=== PATIENT | male | born 1960 | race Two or more races ===

== ENCOUNTER 2017-08-23 04:41 | Emergency (ER) | payer MEDICAID ==
[~2017-08-23] VITALS: Ht 182.9 cm; Wt 86.2 kg
--- NOTE | 2017-08-23 04:41 | NUR ---
BB SELF; UNABLE TO URINATE SINCE YESTERDAY STATING "IT FEELS VERY UNCOMFORTABLE". VSS A/OX4 NAD WILL CONTINUE TO MONITOR FOR ANY CHANGES DURING THE SHIFT.
[2017-08-23 05:48] LABS: APPEARANCE,URINE CLEAR (CLEAR); BILIRUBIN,URINE NEGATIVE (NEGATIVE); BLOOD, URINE TRACE-INTA Ery/uL (NEGATIVE); COLOR,URINE YELLOW (YELLOW); KETONES,URINE NEGATIVE (NEGATIVE); LEUKOCYTE ESTERASE ,URINE NEGATIVE (NEGATIVE); NITRITE, URINE NEGATIVE (NEGATIVE); PH,URINE 6.5 (5.0-8.0); PROTEIN,URINE NEGATIVE (NEGATIVE); UGLUCOSE NEGATIVE (NEGATIVE); UROBILINOGEN,URINE 0.2 EU/dL (0.2)
[2017-08-23 06:02] LABS: BACTERIA,URINE Few /HPF (None Seen); SQUAMOUS EPITHELIAL CELL,UR Rare /HPF (None Seen); WBC,URINE 0-2 /HPF (0-3)
[2017-08-23] MEDS ORDERED: IBUPROFEN 200 MG TABLET ONE (06:22)
[2017-08-23] MEDS ORDERED: IBUPROFEN 600 MG TABLET PO ONE (06:23)
[2017-08-23] MEDS ORDERED: IBUPROFEN 400 MG TABLET PO ONE (06:30)
[2017-08-23 06:46] VITALS: BP 145/78
--- NOTE | 2017-08-23 06:47 | NUR ---
Patient discharged to home in stable condition. Written and verbal after care instructions given. Patient verbalizes understanding of instruction. PT ambulatory with a steady gait VITAL SIGNS WITHIN NORMAL LIMITS.
== END 2017-08-23 06:52 | disposition home or self-care (01) ==
LOC: ER 04:47
DX: R33.9 Retention of urine, unspecified (principal); I10 Essential (primary) hypertension
CPT/HCPCS: 51702; 81001; 99284; A4606; Z7610; 81000-TC

== ENCOUNTER 2017-08-28 14:14 | Emergency (ER) | payer MEDICAID ==
[~2017-08-28] VITALS: Ht 185.4 cm; Wt 86.2 kg
--- NOTE | 2017-08-28 14:45 | NUR ---
CATHETER LEAKING AROUND SITE. PAIN X 2 DAYS, NAD NOTED, VSS, RESP EVEN AND UNLABORED. PT WAS PUT ON MONITOR, WAITING FOR MD JAMA.
[2017-08-28] MEDS ORDERED: LIDOCAINE 2% JEL UROJET 10 ML MM ONE ×2 (15:26→17:28)
[2017-08-28] MEDS ORDERED: HYDROCODONE/APAP 10/325MG 1 EA TABLET PO ONE (16:00)
[2017-08-28] MEDS ORDERED: HYDROCODONE/APAP 10/325MG 1 EA TABLET ONE (16:03)
[2017-08-28 16:21] LABS: APPEARANCE,URINE Slightly Cloudy (CLEAR); BILIRUBIN,URINE Negative (NEGATIVE); BLOOD, URINE Large Ery/uL (NEGATIVE); COLOR,URINE Yellow (YELLOW); KETONES,URINE Negative (NEGATIVE); LEUKOCYTE ESTERASE ,URINE Trace (NEGATIVE); NITRITE, URINE Negative (NEGATIVE); PROTEIN,URINE >=300 mg/dl (NEGATIVE); UGLUCOSE Negative (NEGATIVE); UROBILINOGEN,URINE 0.2 EU/dL (0.2)
[2017-08-28 16:38] LABS: RBC,URINE 81-100 /HPF (0-2)
[2017-08-28 16:39] LABS: BACTERIA,URINE Few /HPF (None Seen); SQUAMOUS EPITHELIAL CELL,UR Rare /HPF (None Seen)
[2017-08-28 17:59] VITALS: BP 134/82
--- NOTE | 2017-08-28 18:01 | NUR ---
Patient discharged to home in stable condition. Written and verbal after care instructions given. Patient verbalizes understanding of instruction. Prescription given.
== END 2017-08-28 18:02 | disposition home or self-care (01) ==
LOC: ER 14:15
DX: T83.031A Leakage of indwelling urethral catheter, initial encounter (principal); N39.0 Urinary tract infection, site not specified; N48.89 Other specified disorders of penis; F17.200 Nicotine dependence, unspecified, uncomplicated; I10 Essential (primary) hypertension; Z98.890 Other specified postprocedural states; Y92.89 Other specified places as the place of occurrence of the external cause
CPT/HCPCS: 81000-TC; A4606; J3490; Z7610

== ENCOUNTER 2017-09-03 06:28 | Emergency (ER) | payer MEDICAID ==
[~2017-09-03] VITALS: Ht 182.9 cm; Wt 86.2 kg
[2017-09-03] MEDS ORDERED: LIDOCAINE 2% JEL UROJET 10 ML MM ONE ×2 (06:36→07:00)
[2017-09-03 07:25] LABS: APPEARANCE,URINE CLEAR (CLEAR); BILIRUBIN,URINE NEGATIVE (NEGATIVE); BLOOD, URINE NEGATIVE Ery/uL (NEGATIVE); COLOR,URINE YELLOW (YELLOW); KETONES,URINE NEGATIVE (NEGATIVE); LEUKOCYTE ESTERASE ,URINE NEGATIVE (NEGATIVE); NITRITE, URINE NEGATIVE (NEGATIVE); PROTEIN,URINE NEGATIVE (NEGATIVE); UGLUCOSE NEGATIVE (NEGATIVE); UROBILINOGEN,URINE 0.2 EU/dL (0.2)
[2017-09-03 08:33] VITALS: BP 140/83
--- NOTE | 2017-09-03 08:34 | NUR ---
pt entered emergency room with c/c of urinary retention since 0430 this AM . Pt seen in this emergency room for newman placement subsequently removed . Then pt redevelpoed urinary retention with pressure and pain. pt alert with orientation x 4. pt has a history of prostate problem. 16 yakut placed evaluated pt and total urine out put 1300 ml. Urine bag bag placed MD Carvajal aware. pt able to amubulate with leg bag. pt pain 0/10.
--- NOTE | 2017-09-03 10:21 | NUR ---
pt departed for home given f/u woth urology walked out of ER with steady gait to home.
== END 2017-09-03 10:22 | disposition home or self-care (01) ==
LOC: ER 06:31
DX: R33.9 Retention of urine, unspecified (principal); I10 Essential (primary) hypertension; F17.200 Nicotine dependence, unspecified, uncomplicated
CPT/HCPCS: 81000-TC; A4606; J3490; Z7610

== ENCOUNTER 2017-09-15 20:44 | Emergency (ER) | payer MEDICAID ==
[~2017-09-15] VITALS: Ht 182.9 cm; Wt 86.2 kg
[2017-09-15] MEDS ORDERED: ONDANSETRON 4 MG TAB.RAPDIS SL ONE (21:00)
--- NOTE | 2017-09-15 21:02 | NUR ---
BIBSELF FOR UNABLE TO URINATE SINCE 10AM YESTERDAY. PT AOX3 RR EVEN AND UNLABORED. NO SOB NOTED. NAD NOTED. NO NVD AT THIS TIME. PT GOWNED AND PLACED ON MONITOR WAITING FOR MD JAMA.
--- NOTE | 2017-09-15 21:03 | NUR ---
VERBAL ORDER PER MD TO PLACED F/C. 16FR F/C PLACED. URINE COLLECTED. CALLED LAB FOR PICK.
[2017-09-15] MEDS ORDERED: ONDANSETRON 4 MG TAB.RAPDIS ONE (21:05)
--- NOTE | 2017-09-15 21:07 | NUR ---
DR. HOLLIDAY AT BEDSIDE FOR EVAL.
[2017-09-15] MEDS ORDERED: PHENAZOPYRIDINE HCL 200 MG TABLET ONE (21:30)
[2017-09-15] MEDS ORDERED: PHENAZOPYRIDINE HCL 200 MG TABLET PO ONE (21:30)
--- NOTE | 2017-09-15 21:56 | NUR ---
Patient is resting comfortably in bed with eyes closed. Easily aroused. VSS. HURTADO OUTPUT [address] HOLLIDAY MADE AWARE
--- NOTE | 2017-09-15 22:19 | NUR ---
PT PROVIDED WITH LEG BAG PER MD ORDER
--- NOTE | 2017-09-15 22:21 | NUR ---
Patient discharged to home in stable condition. Written and verbal after care instructions given. Patient verbalizes understanding of instruction. ambulatory with a steady gait. pt with leg bag.
[2017-09-15 22:25] VITALS: BP 128/68
== END 2017-09-15 22:25 | disposition home or self-care (01) ==
LOC: ER 20:46
DX: R33.9 Retention of urine, unspecified (principal); I10 Essential (primary) hypertension; F17.200 Nicotine dependence, unspecified, uncomplicated
CPT/HCPCS: A4606; Q0162; Z7610

== ENCOUNTER 2017-09-18 15:32 | Emergency (ER) | payer MEDICAID ==
[~2017-09-18] VITALS: Ht 182.9 cm; Wt 86.2 kg
[2017-09-18 15:36] VITALS: BP 140/92
[2017-09-18] MEDS ORDERED: ONDANSETRON 4 MG TAB.RAPDIS ONE (15:50)
[2017-09-18] MEDS ORDERED: HYDROCODONE/APAP 10/325MG 1 EA TABLET ONE (15:50)
[2017-09-18] MEDS ORDERED: LIDOCAINE 2% JEL UROJET 10 ML MM ONE ×2 (15:50→16:00)
[2017-09-18] MEDS ORDERED: HYDROCODONE/APAP 10/325MG 1 EA TABLET PO ONE (16:00)
[2017-09-18] MEDS ORDERED: ONDANSETRON 4 MG TAB.RAPDIS SL ONE (16:00)
== END 2017-09-18 16:24 | disposition home or self-care (01) ==
LOC: ER 15:33
DX: T83.038A Leakage of other urinary catheter, initial encounter (principal); N40.1 Benign prostatic hyperplasia with lower urinary tract symptoms; R33.8 Other retention of urine; I10 Essential (primary) hypertension; F17.200 Nicotine dependence, unspecified, uncomplicated
CPT/HCPCS: A4606; J3490; Q0162; Z7610

== ENCOUNTER 2017-10-02 11:58 | Emergency (ER) | payer MEDICAID ==
[~2017-10-02] VITALS: Ht 182.9 cm; Wt 86.2 kg
[2017-10-02] MEDS ORDERED: LIDOCAINE 2% JEL UROJET 10 ML MM ONE (12:01)
--- NOTE | 2017-10-02 12:15 | NUR ---
PT A/O X4. STABLE CONDITION. COMPLAINING OF PENILE AND SUPERPUBIC PAIN. 8/10 PAIN. NEG ACUTE DISTRESS. VSS. NEG SOB. SAFETY MEASURES IN PLACE.
[2017-10-02] MEDS ORDERED: HYDROCODONE/APAP 10/325MG 1 EA TABLET PO ONE (12:30)
[2017-10-02 12:43] LABS: APPEARANCE,URINE Turbid (CLEAR); BILIRUBIN,URINE SMALL (NEGATIVE); BLOOD, URINE Moderate Ery/uL (NEGATIVE); KETONES,URINE Trace (NEGATIVE); LEUKOCYTE ESTERASE ,URINE Moderate (NEGATIVE); NITRITE, URINE Positive (NEGATIVE); PROTEIN,URINE 100 mg/dl (NEGATIVE); UGLUCOSE Negative (NEGATIVE); UROBILINOGEN,URINE 0.2 EU/dL (0.2)
[2017-10-02 12:44] LABS: COLOR,URINE Dark Yellow (YELLOW)
[2017-10-02 12:55] LABS: BACTERIA,URINE Many /HPF (None Seen); RBC,URINE 20-50 /HPF (0-2); SQUAMOUS EPITHELIAL CELL,UR Few /HPF (None Seen); WBC,URINE 80-100 /HPF (0-3)
[2017-10-02] MEDS ORDERED: LEVOFLOXACIN (750 MG) 750 MG TABLET PO SCH (13:30)
--- NOTE | 2017-10-02 13:43 | NUR ---
HURTADO CATHETER REPLACED PER MED. PT TOLERATED WELL
[2017-10-02 13:45] VITALS: BP 134/76
== END 2017-10-02 13:46 | disposition home or self-care (01) ==
LOC: ER 12:00
DX: T83.091A Other mechanical complication of indwelling urethral catheter, initial encounter (principal); N39.0 Urinary tract infection, site not specified; I10 Essential (primary) hypertension; N40.0 Benign prostatic hyperplasia without lower urinary tract symptoms; F17.200 Nicotine dependence, unspecified, uncomplicated; Z60.2 Problems related to living alone
CPT/HCPCS: 51702; 81001; 87077; 87086; 87186; 99284; A4606; J3490; Z7610; 81000-TC

== ENCOUNTER 2017-10-13 03:35 | Emergency (ER) | payer MEDICAID ==
[~2017-10-13] VITALS: Ht 177.8 cm; Wt 81.6 kg
--- NOTE | 2017-10-13 03:48 | NUR ---
PT BIBSELF C/O ABD PAIN AND N/V. PT STATES RECENTLY HAD HURTADO CATH PLACED AND REMOVED YESTERDAY PER [facility]. PT STATES HAS NOT MET UROLOGIST. PT AOX3 RR EVEN AND UNLABORED. NO SOB NOTED. PT GOWNED AND PLACED ON MONITOR.
--- NOTE | 2017-10-13 03:54 | NUR ---
HURTADO CATH 16FR PLACED PER MD ORDER. URINE COLLECTED. CALLED LAB FOR PRINTED CIRCUIT BOARD PANELS TRIMMER.
[2017-10-13] MEDS ORDERED: ONDANSETRON 4 MG TAB.RAPDIS SL ONE (04:00)
[2017-10-13] MEDS ORDERED: LIDOCAINE 2% JEL UROJET 10 ML MM ONE ×2 (04:00→04:06)
[2017-10-13] MEDS ORDERED: ONDANSETRON 4 MG TAB.RAPDIS ONE (04:06)
--- NOTE | 2017-10-13 04:14 | NUR ---
PT PLACED ON A LEG BAG PER DR. NELSON.
--- NOTE | 2017-10-13 04:16 | NUR ---
Patient discharged to home in stable condition. Written and verbal after care instructions given. Patient verbalizes understanding of instruction. ambulatory with a steady gait. pt with newman cath/ bag, draining well and intact.
[2017-10-13 04:17] VITALS: BP 135/68
== END 2017-10-13 04:17 | disposition home or self-care (01) ==
LOC: ER 03:37
DX: R33.8 Other retention of urine (principal); F17.200 Nicotine dependence, unspecified, uncomplicated; I10 Essential (primary) hypertension; N40.0 Benign prostatic hyperplasia without lower urinary tract symptoms; Z60.2 Problems related to living alone
CPT/HCPCS: 51702; 99284; 99406; J3490; Q0162; A4606; Z7610

== ENCOUNTER 2017-12-07 07:46 | Emergency (ER) | payer MEDICAID ==
[~2017-12-07] VITALS: Ht 182.9 cm; Wt 81.6 kg
--- NOTE | 2017-12-07 07:54 | NUR ---
PT AMBULATORY TO ER BED 07 C/O URGENCY, BUT UNABLE TO URINATE SINCE THIS AM UPON WAKING UP. C/O 01/22 PAIN, APPEARS ANXIOUS. GOWNED AND PLACED ON MONITOR. AWAITING MD JAMA.
[2017-12-07] MEDS ORDERED: LIDOCAINE 2% JEL UROJET 10 ML MM ONE ×2 (08:00)
[2017-12-07 08:24] LABS: APPEARANCE,URINE CLEAR (CLEAR); BILIRUBIN,URINE NEGATIVE (NEGATIVE); BLOOD, URINE NEGATIVE Ery/uL (NEGATIVE); COLOR,URINE YELLOW (YELLOW); KETONES,URINE NEGATIVE (NEGATIVE); LEUKOCYTE ESTERASE ,URINE NEGATIVE (NEGATIVE); NITRITE, URINE NEGATIVE (NEGATIVE); PH,URINE 6.5 (5.0-8.0); PROTEIN,URINE NEGATIVE (NEGATIVE); UGLUCOSE NEGATIVE (NEGATIVE); UROBILINOGEN,URINE 0.2 EU/dL (0.2)
[2017-12-07 08:45] VITALS: BP 135/84
--- NOTE | 2017-12-07 08:45 | NUR ---
Patient discharged to home in stable condition. Written and verbal after care instructions given. Patient verbalizes understanding of instruction.
== END 2017-12-07 08:46 | disposition home or self-care (01) ==
LOC: ER 07:50
DX: R33.9 Retention of urine, unspecified (principal); N40.0 Benign prostatic hyperplasia without lower urinary tract symptoms; I10 Essential (primary) hypertension; F17.200 Nicotine dependence, unspecified, uncomplicated; Z60.2 Problems related to living alone
CPT/HCPCS: 51702; 81001; 87086; 99284; A4606; J3490; Z7610; 81000-TC

== ENCOUNTER 2017-12-26 04:37 | Emergency (ER) | payer MEDICAID ==
[~2017-12-26] VITALS: Ht 182.9 cm; Wt 88.0 kg
[2017-12-26] MEDS ORDERED: LIDOCAINE 2% JEL UROJET 10 ML MM ONE ×2 (05:03→05:30)
--- NOTE | 2017-12-26 05:03 | NUR ---
Pt bibself from home, c/o urinary retention since saturday after having his newman catheter removed. c/o Generalized lower abd pain, non radiating. Afebrile. Pt being seen by md at bedside.
--- NOTE | 2017-12-26 05:21 | NUR ---
HURTADO CATHETER INSERTED FOR URINARY RETENTION. COLLECTED URINE AND SENT TO LAB.
[2017-12-26 05:23] LABS: APPEARANCE,URINE CLEAR (CLEAR); BILIRUBIN,URINE NEGATIVE (NEGATIVE); BLOOD, URINE TRACE-INTA Ery/uL (NEGATIVE); COLOR,URINE YELLOW (YELLOW); KETONES,URINE NEGATIVE (NEGATIVE); LEUKOCYTE ESTERASE ,URINE NEGATIVE (NEGATIVE); NITRITE, URINE NEGATIVE (NEGATIVE); PROTEIN,URINE NEGATIVE (NEGATIVE); UGLUCOSE NEGATIVE (NEGATIVE); UROBILINOGEN,URINE 0.2 EU/dL (0.2)
[2017-12-26 05:38] LABS: BACTERIA,URINE Few /HPF (None Seen); SQUAMOUS EPITHELIAL CELL,UR Rare /HPF (None Seen)
--- NOTE | 2017-12-26 06:00 | NUR ---
total Urine output: 900cc
--- NOTE | 2017-12-26 06:15 | NUR ---
Patient discharged to home in stable condition. Written and verbal after care instructions given. Patient verbalizes understanding of instruction. Patient left on foot walking with steady gait. No s/s of acute distress or sob noted. VS stable.
[2017-12-26 06:24] VITALS: BP 146/88
== END 2017-12-26 06:15 | disposition home or self-care (01) ==
LOC: ER 04:38
DX: R33.9 Retention of urine, unspecified (principal); I10 Essential (primary) hypertension; N40.0 Benign prostatic hyperplasia without lower urinary tract symptoms; F17.200 Nicotine dependence, unspecified, uncomplicated; Z60.2 Problems related to living alone
CPT/HCPCS: 51702; 81001; 87086; 99284; A4606; J3490; Z7610; 81000-TC

== ENCOUNTER → 2018-01-13 | Emergency (ER) | payer MEDICAID ==
[~2018-01-13] VITALS: Ht 175.3 cm; Wt 87.5 kg
[~2018-01-13] MED LIST: HYDROCODONE/APAP 10/325MG 1 EA TABLET ONE; HYDROCODONE/APAP 10/325MG 1 EA TABLET PO ONE; LEVOFLOXACIN (750 MG) 750 MG TABLET ONE; LEVOFLOXACIN (750 MG) 750 MG TABLET PO SCH; ONDANSETRON 4 MG TAB.RAPDIS ONE; ONDANSETRON 4 MG TAB.RAPDIS SL ONE
[2018-01-13 17:37] LABS: APPEARANCE,URINE Turbid (CLEAR); BILIRUBIN,URINE SMALL (NEGATIVE); BLOOD, URINE Large Ery/uL (NEGATIVE); COLOR,URINE Dark (YELLOW); KETONES,URINE Trace (NEGATIVE); LEUKOCYTE ESTERASE ,URINE Moderate (NEGATIVE); NITRITE, URINE Positive (NEGATIVE); PH,URINE 8.5 (5.0-8.0); PROTEIN,URINE >=300 mg/dl (NEGATIVE); UGLUCOSE Negative (NEGATIVE); UROBILINOGEN,URINE 0.2 EU/dL (0.2)
[2018-01-13 17:48] LABS: BACTERIA,URINE Moderate /HPF (None Seen); WBC,URINE 21-50 /HPF (0-3)
[2018-01-13 17:49] LABS: SQUAMOUS EPITHELIAL CELL,UR Rare /HPF (None Seen)
[2018-01-13 18:16] VITALS: BP 125/78
== END | disposition home or self-care (01) ==
LOC: ER 15:37
DX: N39.0 Urinary tract infection, site not specified (principal); Z46.6 Encounter for fitting and adjustment of urinary device; I10 Essential (primary) hypertension; N40.0 Benign prostatic hyperplasia without lower urinary tract symptoms; F17.200 Nicotine dependence, unspecified, uncomplicated; Z60.2 Problems related to living alone
CPT/HCPCS: 51702; 81001; 99284; A4606; Q0162; Z7610; 81000-TC

== ENCOUNTER 2018-02-02 08:32 | Emergency (ER) | payer MEDICAID ==
[~2018-02-02] VITALS: Ht 182.9 cm; Wt 86.2 kg
[2018-02-02] MEDS ORDERED: ONDANSETRON HCL/PF 4 MG/2 ML VIAL ONE (08:56)
[2018-02-02] MEDS ORDERED: HYDROMORPHONE 1 MG/1 ML DISP.SYRIN ONE (08:57)
[2018-02-02] MEDS ORDERED: HYDROMORPHONE INJ 2 MG/ML DISP.SYRIN IV ONE (09:00)
[2018-02-02] MEDS ORDERED: ONDANSETRON HCL/PF 4 MG/2 ML VIAL IVP ONE (09:00)
[2018-02-02 09:06] LABS: BASOPHILS # (AUTO) 0.1 /CMM (0.0-0.2); BASOPHILS % (AUTO) 0.7 % (0.0-2.0); EOSINOPHILS % (AUTO) 4.8 % (0.0-6.0); HEMATOCRIT 43 % (39-51); HEMOGLOBIN 14.7 g/dL (13.5-17.5); LYMPHOCYTES # (AUTO) 2.7 /CMM (0.8-4.8); LYMPHOCYTES % (AUTO) 21.8 % (20.0-44.0); MEAN CORPUSCULAR HGB CONC 34 g/dl (31.0-36.0); MEAN CORPUSCULAR VOLUME 92 fL (80-96); MONOCYTES # (AUTO) 1.4 /CMM (0.1-1.30); MONOCYTES % (AUTO) 11.1 % (2.0-12.0); NEUTROPHILS # (AUTO) 7.7 /CMM (1.8-8.9); NEUTROPHILS % (AUTO) 61.6 % (43.0-81.0); PLATELET COUNT (AUTO) 252 /CMM (150-450); RED BLOOD CELL COUNT(AUTO) 4.68 MIL/uL (4.5-6.0); WHITE BLOOD COUNT (AUTO) 12.5 K/uL (4.3-11.0)
[2018-02-02] MEDS ORDERED: LIDOCAINE 2% JEL UROJET 10 ML MM ONE ×2 (09:07→09:30)
[2018-02-02 09:16] LABS: CALCIUM, SERUM 8.4 mg/dL (8.5-10.1); POTASSIUM 4.9 mmol/L (3.5-5.1)
--- NOTE | 2018-02-02 09:30 | NUR ---
C/O LEAKAGE ON HURTADO CATHETER AND BURNING SENSATION. PT AAOX3, VSS. PT SEEN & EVAL'D BY DR. HAYWARD. MEDICATED FOR PAIN. REPLACED OLD HURTADO CATHETER & INSERTED 16 FR FC, PT ANGEL LUIS WELL. URINE FLOWED RIGHT AWAY & NO SIGN OF BLOOD NOTED. URINE COLLECTED & SENT TO LAB.
[2018-02-02 09:45] LABS: APPEARANCE,URINE Cloudy (CLEAR); BILIRUBIN,URINE Negative (NEGATIVE); BLOOD, URINE Large Ery/uL (NEGATIVE); COLOR,URINE Yellow (YELLOW); KETONES,URINE Negative (NEGATIVE); LEUKOCYTE ESTERASE ,URINE Moderate (NEGATIVE); NITRITE, URINE Negative (NEGATIVE); PROTEIN,URINE >=300 mg/dl (NEGATIVE); UGLUCOSE Negative (NEGATIVE); UROBILINOGEN,URINE 0.2 EU/dL (0.2)
[2018-02-02 10:10] LABS: BACTERIA,URINE Many /HPF (None Seen); WBC,URINE TOO NUMEROUS TO COUN /HPF (0-3)
[2018-02-02 10:11] LABS: SQUAMOUS EPITHELIAL CELL,UR Few /HPF (None Seen)
--- NOTE | 2018-02-02 10:23 | NUR ---
Patient discharged to home in stable condition. Written and verbal after care instructions given. Patient verbalizes understanding of instruction.
[2018-02-02 10:24] VITALS: BP 122/68
== END 2018-02-02 10:25 | disposition home or self-care (01) ==
LOC: ER 08:35
DX: T83.038A Leakage of other urinary catheter, initial encounter (principal); N39.0 Urinary tract infection, site not specified; N48.89 Other specified disorders of penis; I10 Essential (primary) hypertension; N40.0 Benign prostatic hyperplasia without lower urinary tract symptoms; F17.200 Nicotine dependence, unspecified, uncomplicated; Z60.2 Problems related to living alone
CPT/HCPCS: 36415; 51702; 80048; 81001; 85025; 87077; 87086; 96374; 96375; 99284; J1170; J2405; J3490; 81000-TC; A4606; Z7610

== ENCOUNTER 2018-04-30 09:01 | Emergency (ER) | payer MEDICAID ==
[~2018-04-30] VITALS: Ht 182.9 cm; Wt 86.2 kg
--- NOTE | 2018-04-30 09:05 | NUR ---
PT BIB SELF C/O HURTADO CATHETER IS LEAKING, PT IS AAOX4, NOT IN RESPIRATORY DISTRESS, V/S STABLE, KEPT RESTED AND COMFORTABLE.
[2018-04-30] MEDS ORDERED: ACETAMINOPHEN ES 500 MG TABLET ONE (09:17)
[2018-04-30] MEDS ORDERED: LIDOCAINE 2% JEL UROJET 10 ML MM ONE ×2 (09:23→09:30)
[2018-04-30] MEDS ORDERED: ACETAMINOPHEN ES 500 MG TABLET PO ONE (09:30)
--- NOTE | 2018-04-30 09:30 | NUR ---
URINE SPECIMEN COLLECTED AND SENT TO LAB.
[2018-04-30 09:35] LABS: APPEARANCE,URINE Slightly Cloudy (CLEAR); BILIRUBIN,URINE Negative (NEGATIVE); BLOOD, URINE Large Ery/uL (NEGATIVE); COLOR,URINE Yellow (YELLOW); KETONES,URINE Negative (NEGATIVE); LEUKOCYTE ESTERASE ,URINE Moderate (NEGATIVE); NITRITE, URINE Negative (NEGATIVE); PH,URINE 7.5 (5.0-8.0); PROTEIN,URINE 30 mg/dl (NEGATIVE); UGLUCOSE Negative (NEGATIVE); UROBILINOGEN,URINE 0.2 EU/dL (0.2)
[2018-04-30 09:42] LABS: RBC,URINE 80-100 /HPF (0-2)
[2018-04-30 09:43] LABS: BACTERIA,URINE Rare /HPF (None Seen); SQUAMOUS EPITHELIAL CELL,UR Few /HPF (None Seen); WBC,URINE 20-50 /HPF (0-3)
--- NOTE | 2018-04-30 10:34 | NUR ---
Patient discharged to home in stable condition. Written and verbal after care instructions given. Patient verbalizes understanding of instruction.
[2018-04-30 10:35] VITALS: BP 128/86
== END 2018-04-30 10:35 | disposition home or self-care (01) ==
LOC: ER 09:04
DX: N39.0 Urinary tract infection, site not specified (principal); I10 Essential (primary) hypertension; N40.0 Benign prostatic hyperplasia without lower urinary tract symptoms; F17.200 Nicotine dependence, unspecified, uncomplicated; Z46.82 Encounter for fitting and adjustment of non-vascular catheter; Z60.2 Problems related to living alone
CPT/HCPCS: 51702; 81001; 87077; 87086; 87186; 99284; A4606; J3490; Z7610; 81000-TC

== ENCOUNTER 2018-06-07 13:46 | Emergency (ER) | payer MEDICAID ==
--- NOTE | 2018-06-07 14:14 | NUR ---
PT AT TRIAGE REFUSED TO HAVE VITALS TAKEN, AGITATED AND LEFT ED WITHOUT BEING TRIAGE.
== END 2018-06-07 14:17 | disposition left against medical advice (07) ==
LOC: ER 13:49
DX: Z53.21 Procedure and treatment not carried out due to patient leaving prior to being seen by health care provider (principal)

== ENCOUNTER 2018-06-26 03:36 | Emergency (ER) | payer MEDICAID ==
[~2018-06-26] VITALS: Ht 182.9 cm; Wt 83.9 kg
[2018-06-26] MEDS ORDERED: LIDOCAINE 2% JEL UROJET 10 ML MM ONE ×2 (03:38→04:00)
--- NOTE | 2018-06-26 03:40 | NUR ---
TO BED 7 BIB PARAMEDICS C/O SEVERE SUPRAPUBIC PAIN. PT AAOX4. ER MD AT BEDSIDE TO EVAL PT WITH ORDERS RECEIVED. PT REPORTS THAT HE HAD A F/C X6 MONTHS DUE TO ENLARGED PROSTATE AND F/C WAS REMOVED YESTERDAY AROUND NOO AND WAS ABLE TO URINATE WITHOUT ANY DIFFICULTY SINCE THEN. PT REPORTS THAT HE LAST URINATED AROUND 0100. F/C 16FR INSERTED WITH USE OF LIDOCAINE UROJECT, URINE SAMPLE COLLECTED APPROXIMATELY 900 ML'S WITH INSTANT RELIEF OF SUPRAPUBIC PAIN.
--- NOTE | 2018-06-26 04:00 | NUR ---
Pt resting in bed, NAD noted. Will continue to monitor.
[2018-06-26 04:12] LABS: APPEARANCE,URINE CLEAR (CLEAR); BILIRUBIN,URINE NEGATIVE (NEGATIVE); BLOOD, URINE TRACE-INTA Ery/uL (NEGATIVE); COLOR,URINE YELLOW (YELLOW); KETONES,URINE NEGATIVE (NEGATIVE); LEUKOCYTE ESTERASE ,URINE 1+ (NEGATIVE); NITRITE, URINE POSITIVE (NEGATIVE); PH,URINE 7.5 (5.0-8.0); PROTEIN,URINE NEGATIVE (NEGATIVE); UGLUCOSE NEGATIVE (NEGATIVE); UROBILINOGEN,URINE 0.2 EU/dL (0.2)
[2018-06-26 04:18] LABS: BACTERIA,URINE Many /HPF (None Seen); WBC,URINE 51-80 /HPF (0-3)
[2018-06-26 04:19] LABS: SQUAMOUS EPITHELIAL CELL,UR Rare /HPF (None Seen)
[2018-06-26] MEDS ORDERED: LEVOFLOXACIN (750 MG) 750 MG TABLET ONE (04:57)
[2018-06-26] MEDS ORDERED: LEVOFLOXACIN (750 MG) 750 MG TABLET PO SCH (05:00)
--- NOTE | 2018-06-26 05:08 | NUR ---
Patient discharged to home in stable condition. Written and verbal after care instructions given. Patient verbalizes understanding of instruction. IV removed. Catheter intact and site benign. Pressure and 4x4 applied to site. No bleeding noted. Pt ambulatory with steady gait.
[2018-06-26 05:09] VITALS: BP 144/82
== END 2018-06-26 05:10 | disposition home or self-care (01) ==
LOC: ER 03:38
DX: N39.0 Urinary tract infection, site not specified (principal); I10 Essential (primary) hypertension; N40.0 Benign prostatic hyperplasia without lower urinary tract symptoms; F17.200 Nicotine dependence, unspecified, uncomplicated; Z60.2 Problems related to living alone
CPT/HCPCS: 51702; 81001; 87077; 87086; 87186; 99284; A4606; 81000-TC; J3490

== ENCOUNTER 2020-09-13 12:32 | Emergency (ER) | payer MEDICAID ==
[~2020-09-13] VITALS: Ht 182.9 cm; Wt 86.2 kg
--- NOTE | 2020-09-13 12:32 | NUR ---
PT BIB RA 78 FROM HOME C/O OD ON FENTANYL NARCAN GIVEN BY EMS TELEHEALTH CASE MANAGER. PT IS AAOX3, NOT IN RESPIRATORY DISTRESS, HOOKED TO NATIONAL ACCOUNTS RECRUITER, KEPT RESTED AND COMFORTABLE. WILL CONTINUE TO MONITOR.
--- NOTE | 2020-09-13 12:51 | NUR ---
PT SEEN AND EXAMINED BY
--- NOTE | 2020-09-13 13:05 | NUR ---
ER PHLEB AT BEDSIDE FOR BLOOD DRAW.
[2020-09-13] MEDS ORDERED: NALOXONE PREFILLED SYRINGE 2 MG/2 ML SYRINGE ONE (13:10)
[2020-09-13 13:15] LABS: BASOPHILS # (AUTO) 0.1 /CMM (0.0-0.2); BASOPHILS % (AUTO) 0.8 % (0.0-2.0); EOSINOPHILS % (AUTO) 3.1 % (0.0-6.0); HEMATOCRIT 46 % (39-51); HEMOGLOBIN 15.2 g/dL (13.5-17.5); LYMPHOCYTES # (AUTO) 1.3 /CMM (0.8-4.8); LYMPHOCYTES % (AUTO) 20.3 % (20.0-44.0); MEAN CORPUSCULAR HGB CONC 33 g/dl (31.0-36.0); MEAN CORPUSCULAR VOLUME 96 fL (80-96); MONOCYTES # (AUTO) 0.4 /CMM (0.1-1.30); MONOCYTES % (AUTO) 5.5 % (2.0-12.0); NEUTROPHILS # (AUTO) 4.6 /CMM (1.8-8.9); NEUTROPHILS % (AUTO) 70.3 % (43.0-81.0); PLATELET COUNT (AUTO) 253 /CMM (150-450); RED BLOOD CELL COUNT(AUTO) 4.83 MIL/uL (4.5-6.0); WHITE BLOOD COUNT (AUTO) 6.5 K/uL (4.3-11.0)
[2020-09-13 13:22] LABS: CALCIUM, SERUM 8.2 mg/dL (8.5-10.1); CARBON DIOXIDE 29 mmol/L (21-32); CHLORIDE 100 mmol/L (98-107); CREATININE 1.3 mg/dL (0.6-1.3); GLUCOSE 291 mg/dL (74-106); POTASSIUM 3.6 mmol/L (3.5-5.1); SODIUM SERUM 137 mmol/L (136-145); UREA NITROGEN, BLOOD 21 mg/dL (7-18)
--- NOTE | 2020-09-13 13:25 | NUR ---
IV removed. Catheter intact and site benign. Pressure and 4x4 applied to site. No bleeding noted.
--- NOTE | 2020-09-13 13:26 | NUR ---
Patient does not wish to proceed with medical care recommended by Dr. Hill. Patient given information related to possible complications, up to and including , which could occur as a result of leaving the hospital at this time. Patient verbalizes understanding of risks involved due to leaving against medical advice. Patient has signed AMA form.
[2020-09-13 13:28] VITALS: BP 139/81
[2020-09-13 13:28] LABS: ACETAMINOPHEN < 2 ug/ml (10-30); ALANINE AMINOTRANSFERASE 87 U/L (12-78); ALBUMIN 4.2 g/dL (3.4-5.0); ALCOHOL, BLOOD < 3 mg/dL (0-0); ALKALINE PHOSPHATASE 123 U/L (46-116); ASPARTATE AMINOTRANSFERASE 88 U/L (15-37); BILIRUBIN,DIRECT 0.2 mg/dL (0.0-0.2); BILIRUBIN,TOTAL 0.7 mg/dL (0.2-1.0); TOTAL PROTEIN, SERUM 7.8 g/dL (6.4-8.2)
[2020-09-13] MEDS ORDERED: NALOXONE PREFILLED SYRINGE 2 MG/2 ML SYRINGE IV ONE (13:30)
[2020-09-13 20:37] LABS: BILIRUBIN,URINE Negative (NEGATIVE); COLOR,URINE YELLOW (YELLOW); LEUKOCYTE ESTERASE ,URINE Negative (NEGATIVE); NITRITE, URINE Negative (NEGATIVE); PROTEIN,URINE 30 mg/dl (NEGATIVE); UGLUCOSE 250 MG/DL mg/dL (NEGATIVE); UROBILINOGEN,URINE 0.2 EU/dL (0.2)
[2020-09-13 20:48] LABS: BACTERIA,URINE Rare /HPF (None Seen); RBC,URINE NONE SEEN /HPF (0-2); SQUAMOUS EPITHELIAL CELL,UR Few /HPF (None Seen); WBC,URINE NONE SEEN /HPF (0-3)
== END 2020-09-13 13:28 | disposition left against medical advice (07) ==
LOC: ER 12:32
DX: T40.411A Poisoning by fentanyl or fentanyl analogs, accidental (unintentional), initial encounter (principal); I10 Essential (primary) hypertension; F17.200 Nicotine dependence, unspecified, uncomplicated; Y92.89 Other specified places as the place of occurrence of the external cause
CPT/HCPCS: 36415; 80048; 80076; 80143; 80307; 80320; 81001; 85025; 96374; 99283; J2310; G0480

== ENCOUNTER 2020-09-13 15:44 | Inpatient (IN) | payer MEDICAID ==
[~2020-09-13] VITALS: Ht 182.9 cm; Wt 71.9 kg
[2020-09-13] VITALS (7 sets, daily range): BP systolic 161–205; BP diastolic 104–169
--- NOTE | 2020-09-13 16:03 | NUR ---
ANGELITO FROM HOME TO ER BED 7. DROWSY, EASILY ARROUSABLE. NOT IN RESP DISTRESS, BREATHING EVEN AND UNLABORED. BROUGHT IN FOR OVER DOSE ON OPIOD. PT REPORT TAKING DRUGS BUT DID NOT KNOW THAT IT WAS MIXED WITH SOMETHING ELSE. EMS REPORTS THAT HE WAS GIVEN NARCAN 1MG VIA IV AND AWOKEN. PT IS SATTING WELL @ 97% ON RA. MD WAS AT THE BEDSIDE FOR EVAL. ORDERS RECEIVED, NOTED AND CARRIED OUT. PT ALREADY HAVE AN IV ON LFA 20G AND WELL R AC 20G. PT ON MONITOR.
[2020-09-13] MEDS ORDERED: ONDANSETRON 4 MG TAB.RAPDIS SL ONE (16:30)
[2020-09-13 16:57] LABS: BASOPHILS % (AUTO) 0.2 % (0.0-2.0); HEMATOCRIT 47 % (39-51); HEMOGLOBIN 15.2 g/dL (13.5-17.5); LYMPHOCYTES # (AUTO) 0.6 /CMM (0.8-4.8); LYMPHOCYTES % (AUTO) 3.8 % (20.0-44.0); MEAN CORPUSCULAR HGB CONC 33 g/dl (31.0-36.0); MEAN CORPUSCULAR VOLUME 96 fL (80-96); MONOCYTES # (AUTO) 0.8 /CMM (0.1-1.30); MONOCYTES % (AUTO) 4.8 % (2.0-12.0); NEUTROPHILS # (AUTO) 15.2 /CMM (1.8-8.9); NEUTROPHILS % (AUTO) 91.2 % (43.0-81.0); PLATELET COUNT (AUTO) 210 /CMM (150-450); RED BLOOD CELL COUNT(AUTO) 4.86 MIL/uL (4.5-6.0); WHITE BLOOD COUNT (AUTO) 16.6 K/uL (4.3-11.0)
[2020-09-13] MEDS ORDERED: ONDANSETRON 4 MG TAB.RAPDIS ONE (16:57)
[2020-09-13 17:39] LABS: CARBON DIOXIDE 27 mmol/L (21-32); CHLORIDE 102 mmol/L (98-107); GLUCOSE 94 mg/dL (74-106); POTASSIUM 4.4 mmol/L (3.5-5.1); SODIUM SERUM 138 mmol/L (136-145)
--- NOTE | 2020-09-13 17:39 | NUR ---
MOVE PACKET TURNED IN.
[2020-09-13 17:40] LABS: CALCIUM, SERUM 8.6 mg/dL (8.5-10.1); UREA NITROGEN, BLOOD 20 mg/dL (7-18)
[2020-09-13 17:47] LABS: ALKALINE PHOSPHATASE 105 U/L (46-116); BILIRUBIN,DIRECT 0.1 mg/dL (0.0-0.2); BILIRUBIN,TOTAL 0.6 mg/dL (0.2-1.0); CREATININE 0.9 mg/dL (0.6-1.3)
[2020-09-13 17:48] LABS: ALANINE AMINOTRANSFERASE 85 U/L (12-78); ALBUMIN 4.2 g/dL (3.4-5.0); ALCOHOL, BLOOD < 3 mg/dL (0-0); ASPARTATE AMINOTRANSFERASE 64 U/L (15-37); TOTAL PROTEIN, SERUM 7.6 g/dL (6.4-8.2)
[2020-09-13] MEDS ORDERED: NALOXONE HCL 0.4 MG/ML AMPUL IV ONE ×3 (18:00→22:30)
[2020-09-13] MEDS ORDERED: NALOXONE HCL 0.4 MG/ML AMPUL ONE ×3 (18:01→23:58)
--- NOTE | 2020-09-13 18:05 | NUR ---
NOTED SLEEPING AND HARDER TO AWOKEN UNLIKE EARLIER. MD WAS AT THE BEDSIDE AND ORDER RECEIVED TO GIVE ANOTHER NARCAN 0.4MG IVP X 1.
--- NOTE | 2020-09-13 19:53 | NUR ---
PANEL PAGED PER ER MD ORDER.
--- NOTE | 2020-09-13 20:25 | NUR ---
ER TALKNIG TO SANTIAGO MARIEE DNP REGARDING PT ADMISSION.
--- NOTE | 2020-09-13 21:00 | NUR ---
PERFORMED BODY CHECK ON PT TO CHECK FOR ANY FENTANYL PATCH. NO PATCH WAS FOUND.
--- NOTE | 2020-09-13 21:05 | NUR ---
PT IS MORE AWAYE AFTER RECEIVING THE NARCAN 0.8MG IV.
--- NOTE | 2020-09-13 21:34 | NUR ---
REPORT GIVEN TO NIKKO AUSTIN FOR ROSMERY
[2020-09-13] MEDS ORDERED: ASPIRIN 81 MG TAB.CHEW ONE (21:38)
--- NOTE | 2020-09-13 21:45 | NUR ---
ICU/DRAW BENCH OPERATOR HELPER RECIEVED PT FROM ER, GOT REPORT FROM NIKKO CAICEDO EARLIER. BED IS OPEN AND READY FOR PT.
--- NOTE | 2020-09-13 21:52 | NUR ---
PT TRANSPORTED TO UNIT ON GURNEY WITH EMT AND RN AT BEDSIDE W/ ACLS PROTOCOL. NAD NOTED DURING.
[2020-09-13] MEDS ORDERED: ASPIRIN 81 MG TAB.CHEW PO SCH (22:00)
[2020-09-13] MEDS ORDERED: hydrALAZINE HCL 50 MG TABLET ONE (22:02)
--- NOTE | 2020-09-13 22:30 | NUR ---
ICU/APARTMENT HOTEL MANAGER CAME TO SEE PT, WILL WRITE ADMITTING ORDERS. GAVE VERBAL ORDER FOR A ONE TIME DOSE OF NARCAN. ALSO APRESOLINE 50MG FOR ELEVATED BP OF 189/109.CALL LIGHT WITHIN REACH. WILL MONITOR THIS PT. ALL THESE ORDERS WERE CARRIED OUT, CHARGE NURSE MADE AWARE.
[2020-09-13] MEDS ORDERED: ENOXAPARIN SODIUM 40 MG/0.4 ML DISP.SYRIN SQ SCH (23:00)
[2020-09-13] MEDS ORDERED: Z GUARD REMEDY 2 OZ OINT TP PRN (23:00)
[2020-09-13] MEDS ORDERED: ACETAMINOPHEN 325 MG TABLET PO PRN (23:00)
[2020-09-13] MEDS: ASPIRIN EC 81 MG TABLET.DR PO SCH (23:00)
[2020-09-13] MEDS ORDERED: NALOXONE HCL 4 MG in IV NS 0.9% 240 ML IV PRN (23:00)
[2020-09-13] MEDS ORDERED: ONDANSETRON HCL/PF 4 MG/2 ML VIAL IVP PRN (23:00)
[2020-09-13] MEDS ORDERED: ATORVASTATIN 40 MG TABLET PO SCH (23:00)
--- NOTE | 2020-09-13 23:20 | NUR ---
ICU/METAL POLISHER PT HAD X2 OF EMESIS WHICH WAS LIQUID FROM WATER HE DRANK EALIER. WILL MONITOR THIS PT AND HIS VOMITING.
[2020-09-13] MEDS: VALSARTAN 80 MG TABLET PO SCH (23:44)
--- NOTE | 2020-09-13 23:58 | NUR ---
ICU/PATTERN GRADER 2300 DOSE OF ASPIRIN NOT GIVEN DUE TO THE FACT PT HAS RECIEVED IN THE ER. HYDROELECTRIC PLANT STRUCTURAL ENGINEER SASCHA SAID HE HAD GIVEN 162MG OF ASPIRIN BEFORE TRANSFER THIS PT TO THE ICU. ALSO THE PT VERBALIZED HE GOT 2 ASPIRIN BEFORE HE CAME TO THE ICU.
[2020-09-14] VITALS (15 sets, daily range): BP systolic 136–156; BP diastolic 80–100
[2020-09-14] MEDS ORDERED: NALOXONE HCL 0.4 MG/ML AMPUL ONE (00:01)
--- NOTE | 2020-09-14 00:10 | NUR ---
ICU/PAPER NOVELTY MAKER PT IS LETHARGIC, DR MARIEE GAVE ORDER FOR NARCAN DRIP. THIS WAS STARTED BY CHARGE NURSE. WILL CONTINUE TO MONITOR THIS PT FOR ANY CHANGES. CALL LIGHT WITHIN REACH. NO ACUTE DISTRESS SEEN. PT APPEARS TO BE COMFORTABLE. WILL MONITOR THIS PT.
[2020-09-14] MEDS ORDERED: NALOXONE HCL 4 MG in IV NS 0.9% 240 ML IV PRN (00:30)
--- NOTE | 2020-09-14 00:30 | NUR ---
ICU/ELEVATOR OPERATOR FREIGHT TROPCAME DOWN TO 0.189FROM 0.223 FROM 0.202.THE TROP IS TRENDING DOWN. WILL MONITOR THIS PT.
--- NOTE | 2020-09-14 04:00 | NUR ---
ICU/BUSINESS LINE MANAGER PT APPEARS TO BE AWAKE AND VERY RESPONDSIVE. WHEN NURSE IS IN THE ROOM, AND MOVING ABOUT IN THE ROOM. WILL CONTINUE TO MONITOR THIS PT.
[2020-09-14 04:31] LABS: BASOPHILS % (AUTO) 0.4 % (0.0-2.0); EOSINOPHILS % (AUTO) 0.5 % (0.0-6.0); HEMATOCRIT 43 % (39-51); HEMOGLOBIN 14.4 g/dL (13.5-17.5); LYMPHOCYTES # (AUTO) 1.8 /CMM (0.8-4.8); LYMPHOCYTES % (AUTO) 16.3 % (20.0-44.0); MEAN CORPUSCULAR HGB CONC 33 g/dl (31.0-36.0); MEAN CORPUSCULAR VOLUME 95 fL (80-96); MONOCYTES # (AUTO) 0.9 /CMM (0.1-1.30); MONOCYTES % (AUTO) 8.6 % (2.0-12.0); NEUTROPHILS # (AUTO) 8.1 /CMM (1.8-8.9); NEUTROPHILS % (AUTO) 74.2 % (43.0-81.0); PLATELET COUNT (AUTO) 211 /CMM (150-450); RED BLOOD CELL COUNT(AUTO) 4.56 MIL/uL (4.5-6.0); WHITE BLOOD COUNT (AUTO) 10.9 K/uL (4.3-11.0)
[2020-09-14 04:47] LABS: THYROID STIMULATING HORMONE 1.356 uIU/mL (0.358-3.74)
[2020-09-14 04:51] LABS: PHOSPHORUS 3.8 mg/dL (2.5-4.9)
--- NOTE | 2020-09-14 05:20 | NUR ---
ICU/LIVE AMMUNITION INSPECTOR PT HAD AM LABS DRAWN, AWAIT FOR ANY ABNORMAL RESULTS.
--- NOTE | 2020-09-14 06:55 | NUR ---
ICU/VRT MECHANIC PT IS ALERT AND RESPONDIVE TO WHAT IS GOING ON AROUND HIM. PT SAT UP FOR BREAKFAST. ASKED WHEN HE CAN GO HOME. THE NARCAN DRIP WAS TURNED OFF DUE TO PT'S LEVEL OF ALERTNESS, NO ACUTE DISTRESS SEEN. WILL PASS THIS ON TO DAY SHIFT.
--- NOTE | 2020-09-14 07:30 | NUR ---
REPORT RECEIVED FROM GEOVANNA LINDO. PT CURRENTLY EATING BREAKFAST, OX4. PT STATES HE WANTS TO LEAVE AMA. PT'S PHONE IS NOT CHARGED, RN PLUGGED PATIENTS PHONE IN ATTEMPT TO CHARGE PT'S PHONE. PT STATES HIS PHONE DOESN'T CHARGE WELL WITH A PLUG, PT HAS A WIRELESS COMMUNITY ARTS OFFICER AT HOME.
[2020-09-14] MEDS: VALSARTAN 80 MG TABLET PO SCH (07:47)
[2020-09-14] MEDS: ASPIRIN EC 81 MG TABLET.DR PO SCH (07:47)
--- NOTE | 2020-09-14 08:00 | NUR ---
PT'S PHONE DID NOT CHARGE. HOUSE SUP STATES THAT PATIENT CAN CALL A CAB FROM [employer] IN THE LOBBY TO GET A RIDE HOME. PT DOESN'T REMEMBER PHONE NUMBERS TO HIS SON TO PICK HIM UP, SINCE HIS PHONE IS NOT CHARGED. RIGHT AC AND LFA IV SITES REMOVED AT THIS TIME WITHOUT DIFFICULTY, DRESSINGS APPLIED. PT SIGNED AMA FORM, PLACED ON CHART. PT GETTING DRESSING AND GATHERING PERSONAL BELONGINGS.
--- NOTE | 2020-09-14 08:17 | NUR ---
RN WALKED PT TO THE LOBBY WITH ALL PT'S PERSONAL BELONGINGS INCLUDING CELL PHONE. SECURITY GAVE SCREEN PRINTING PASTER CARD TO CALL FOR A CAB, PT REFUSED STATING HE WILL WALK TO A STORE TO BUY A STEAM SETTER THAT WILL CHARGE HIS PHONE AND THEN CALL HIS SON. PT WALKED OUT OF HOSPITAL.
[2020-09-15 15:23] LABS: BILIRUBIN,URINE NEGATIVE (NEGATIVE); COLOR,URINE YELLOW (YELLOW); LEUKOCYTE ESTERASE ,URINE NEGATIVE (NEGATIVE); NITRITE, URINE NEGATIVE (NEGATIVE); PROTEIN,URINE NEGATIVE (NEGATIVE); UGLUCOSE 250 MG/DL mg/dL (NEGATIVE); UROBILINOGEN,URINE 0.2 EU/dL (0.2)
[2020-09-15 16:06] LABS: BACTERIA,URINE None seen /HPF (None Seen); RBC,URINE 0-2 /HPF (0-2); SQUAMOUS EPITHELIAL CELL,UR 0-2 /HPF (None Seen); URINE AMORPHOUS URATE Moderate /HPF (None Seen); WBC,URINE 0-2 /HPF (0-3)
== END 2020-09-14 09:09 | disposition left against medical advice (07) | DRG 812 ==
LOC: ER 15:44 → ICU 20:42
PROVIDERS: ADMIT Nurse Practitioner Acute Care; ATTEND Nurse Practitioner Family
DX: T40.411A Poisoning by fentanyl or fentanyl analogs, accidental (unintentional), initial encounter (principal); I21.A1 Myocardial infarction type 2; N17.0 Acute kidney failure with tubular necrosis; Y92.89 Other specified places as the place of occurrence of the external cause; I10 Essential (primary) hypertension; D72.829 Elevated white blood cell count, unspecified; R09.2 Respiratory arrest; Z20.822 Contact with and (suspected) exposure to COVID-19; N40.0 Benign prostatic hyperplasia without lower urinary tract symptoms; R74.01 Elevation of levels of liver transaminase levels; R09.02 Hypoxemia; F19.90 Other psychoactive substance use, unspecified, uncomplicated; F17.200 Nicotine dependence, unspecified, uncomplicated
CPT/HCPCS: 36415; 70450-TC; 71045-TC; 80048-TC; 80061-TC; 80076-TC; 81001; 83735-TC; 84100-TC; 84443-TC; 84484-TC; 85025-TC; 85652-TC; 85730-TC; 86140-TC; 87081-TC; C9803; G0378; G0480; J1650; J2310; J7050; Q0162